=== PATIENT | female | born 1960 | race Caucasian/White ===

== ENCOUNTER 2017-02-07 14:13 | Outpatient (CLI) | payer MEDICAID ==
--- NOTE | 2017-02-07 15:03 | XRay Report ---
BILATERAL ELBOW, 3 views: HISTORY: Bilateral elbow pain. The bony architecture is intact without evidence of fracture or dislocation. No significant soft tissue abnormality is seen. IMPRESSION: Unremarkable bilateral elbows.
== END 2017-02-07 14:14 | disposition home or self-care (01) ==
LOC: SPVIMAG 14:13
PROVIDERS: ATTEND Orthopaedic Surgery Sports Medicine
DX: M25.522 Pain in left elbow (principal); M25.521 Pain in right elbow